=== PATIENT | female | born 1945 | race Asian ===

== ENCOUNTER 2025-04-09 14:04 | Inpatient (IN) | payer MEDICARE, OTHER ==
[~2025-04-09] VITALS: Ht 152.4 cm; Wt 46.7 kg
[2025-04-09] MEDS ORDERED: FERR325T24 PO (14:57)
[2025-04-09] MEDS ORDERED: DIVA-76 PO (14:57)
[2025-04-09] MEDS ORDERED: ASCO500T10 PO (14:57)
[2025-04-09] MEDS ORDERED: ANAS1TAB50 PO (14:57)
[2025-04-09] MEDS ORDERED: ATOR40TA PO (14:57)
[2025-04-09] MEDS ORDERED: MELA5TAB PO (14:57)
[2025-04-09] MEDS ORDERED: ACET-73 PO (14:57)
[2025-04-09] MEDS ORDERED: LEVO330T PO (14:57)
[2025-04-09] MEDS ORDERED: TRAZ-182 PO (14:57)
[2025-04-09] MEDS ORDERED: ACET325T53 PO (14:57)
[2025-04-09] MEDS ORDERED: EPIN0.3A4 IM (14:57)
[2025-04-09] MEDS ORDERED: TRAM50TA2 PO (14:57)
[2025-04-09] MEDS ORDERED: DONE10TA44 PO (14:57)
[2025-04-09 15:40] LABS: RED BLOOD CELL COUNT(AUTO) 2.97 MIL/uL (4.0-5.2); RED CELL DISTRIBUTION WIDTH 16.9 % (11.5-15.0); WHITE BLOOD COUNT (AUTO) 15.7 K/uL (4.3-11.0)
[2025-04-09 15:42] LABS: CALCIUM, SERUM 8.7 mg/dL (8.5-10.1); CREATININE 0.9 mg/dL (0.6-1.3); SODIUM SERUM 140 mmol/L (136-145); UREA NITROGEN, BLOOD 14 mg/dL (7-18)
[2025-04-09 15:46] LABS: PLATELET COUNT (AUTO) 1236 K/uL (150-450)
[2025-04-09 15:48] LABS: INR 1.05 (0.91-1.10)
[2025-04-09 15:51] LABS: LACTIC ACID 1.8 mmol/L (0.4-2.0)
[2025-04-09 15:56] LABS: ASPARTATE AMINOTRANSFERASE 92 U/L (15-37); TOTAL PROTEIN, SERUM 7.3 g/dL (6.4-8.2)
[2025-04-09 16:06] LABS: APPEARANCE,URINE CLEAR (CLEAR); BLOOD, URINE NEGATIVE Ery/uL (NEGATIVE); LEUKOCYTE ESTERASE ,URINE NEGATIVE (NEGATIVE); NITRITE, URINE NEGATIVE (NEGATIVE); UGLUCOSE NEGATIVE (NEGATIVE)
[2025-04-09 16:21] LABS: ADD URINE CULTURE NO; SQUAMOUS EPITHELIAL CELL,UR 0-2 /HPF (None Seen)
[2025-04-09 16:34] LABS: EOSINOPHILS % (MANUAL) 4 % (0-4); LYMPHOCYTES % (MANUAL) 7 % (16-48); MONOCYTES % (MANUAL) 5 % (0-11.0); NEUTROPHILS % (MANUAL) 84 (42-76); PLATELET ESTIMATE INCREASED
[2025-04-09] MEDS ORDERED: ASPIRIN 325 MG TABLET ONE (16:37)
[2025-04-09] MEDS: ASPIRIN 325 MG TABLET PO ONE (16:39)
[2025-04-09] MEDS ORDERED: ONDANSETRON HCL/PF 4 MG/2 ML VIAL IVP PRN (19:30)
[2025-04-09] MEDS ORDERED: MAG HYDROX/AL HYDROX/SIMETH 30 ML UDC PO PRN (19:30)
[2025-04-09] MEDS ORDERED: ACETAMINOPHEN 325 MG TABLET PO PRN ×2 (19:30)
[2025-04-09 20:00] VITALS: BP 122/82; TEMP 97.8; O2SAT 96
[2025-04-09] MEDS: ENOXAPARIN SODIUM 40 MG/0.4 ML DISP.SYRIN SQ SCH (20:33)
[2025-04-09] MEDS: IV NS 0.9% 1,000 ML IV PRN (20:44)
[2025-04-09] MEDS: TRAZODONE 50 MG TABLET PO SCH (21:09)
[2025-04-10 06:19] LABS: RED BLOOD CELL COUNT(AUTO) 2.92 MIL/uL (4.0-5.2); RED CELL DISTRIBUTION WIDTH 17.1 % (11.5-15.0); WHITE BLOOD COUNT (AUTO) 16.6 K/uL (4.3-11.0)
[2025-04-10 06:28] LABS: CALCIUM, SERUM 8.2 mg/dL (8.5-10.1); CREATININE 0.8 mg/dL (0.6-1.3); PHOSPHORUS 3.4 mg/dL (2.5-4.9); SODIUM SERUM 143.0 mmol/L (136-145); UREA NITROGEN, BLOOD 11.0 mg/dL (7-18)
[2025-04-10 07:28] LABS: PLATELET COUNT (AUTO) 1320 K/uL (150-450)
[2025-04-10 08:00] VITALS: BP 125/60; TEMP 98.6; O2SAT 94
[2025-04-10] MEDS: LEVOCARNITINE 330 MG TABLET PO SCH (08:44)
[2025-04-10] MEDS: DIVALPROEX SODIUM 250 MG TABLET.DR PO SCH (08:45)
[2025-04-10] MEDS: ANASTROZOLE 1 MG TABLET PO SCH (08:45)
[2025-04-10] MEDS: DONEPEZIL 5 MG TABLET PO SCH (08:45)
[2025-04-10] MEDS: TRAMADOL HCL 50 MG TABLET PO SCH (08:46)
[2025-04-10 08:55] LABS: BAND % (MANUAL) 2 % (0.0-5.0); NEUTROPHILS % (MANUAL) 86 (42-76)
[2025-04-10 08:56] LABS: EOSINOPHILS % (MANUAL) 1 % (0-4); LYMPHOCYTES % (MANUAL) 8 % (16-48); MONOCYTES % (MANUAL) 3 % (0-11.0); PLATELET ESTIMATE INCREASED
[2025-04-10] MEDS: HYDROXYUREA 500 MG CAPSULE PO SCH (17:13)
[2025-04-10 17:19] LABS: IRON, SERUM 56.0 ug/dl (50-175)
[2025-04-10 20:00] VITALS: BP 130/112; TEMP 97.9; O2SAT 97
[2025-04-10] MEDS: ALLOPURINOL 100 MG TABLET PO SCH (20:54)
[2025-04-11 07:17] LABS: CALCIUM, SERUM 8.7 mg/dL (8.5-10.1); CREATININE 0.8 mg/dL (0.6-1.3); PHOSPHORUS 3.4 mg/dL (2.5-4.9); SODIUM SERUM 139.0 mmol/L (136-145); UREA NITROGEN, BLOOD 9.0 mg/dL (7-18)
[2025-04-11 07:18] LABS: RED BLOOD CELL COUNT(AUTO) 2.90 MIL/uL (4.0-5.2); RED CELL DISTRIBUTION WIDTH 16.9 % (11.5-15.0); WHITE BLOOD COUNT (AUTO) 17.8 K/uL (4.3-11.0)
[2025-04-11 07:57] LABS: PLATELET COUNT (AUTO) 1334 K/uL (150-450)
[2025-04-11 08:00] VITALS: BP 103/62; TEMP 97.7; O2SAT 96
[2025-04-11] MEDS: ASPIRIN EC 81 MG TABLET.DR PO SCH (08:57)
[2025-04-11] MEDS ORDERED: IOHEXOL-350 100 ML VIAL IV ONE (09:10)
[2025-04-11 09:35] LABS: EOSINOPHILS % (MANUAL) 1 % (0-4); LYMPHOCYTES % (MANUAL) 4 % (16-48); MONOCYTES % (MANUAL) 3 % (0-11.0); NEUTROPHILS % (MANUAL) 92 (42-76)
[2025-04-11 09:36] LABS: PLATELET ESTIMATE INCREASED
[2025-04-11 16:00] VITALS: BP 99/65; TEMP 97.9; O2SAT 97
[2025-04-11] MEDS ORDERED: HYDROXYUREA 500 MG CAPSULE PO ONE (16:30)
[2025-04-11] MEDS: HYDROXYUREA 500 MG CAPSULE PO SCH (16:50)
[2025-04-11 20:00] VITALS: BP 113/58; TEMP 97.9; O2SAT 95
[2025-04-12] MEDS: MAGNESIUM HYDROXIDE 30 ML UDC PO PRN (05:37)
[2025-04-12 07:08] LABS: CALCIUM, SERUM 8.4 mg/dL (8.5-10.1); CREATININE 0.8 mg/dL (0.6-1.3); PHOSPHORUS 4.0 mg/dL (2.5-4.9); SODIUM SERUM 139.0 mmol/L (136-145); UREA NITROGEN, BLOOD 9.0 mg/dL (7-18)
[2025-04-12 07:34] LABS: RED BLOOD CELL COUNT(AUTO) 2.93 MIL/uL (4.0-5.2); RED CELL DISTRIBUTION WIDTH 16.7 % (11.5-15.0); WHITE BLOOD COUNT (AUTO) 17.2 K/uL (4.3-11.0)
[2025-04-12 07:43] LABS: PLATELET COUNT (AUTO) 1362 K/uL (150-450)
[2025-04-12 08:00] VITALS: BP 112/68; TEMP 97.7; O2SAT 98
[2025-04-12 09:45] LABS: LYMPHOCYTES % (MANUAL) 9 % (16-48); MONOCYTES % (MANUAL) 6 % (0-11.0); NEUTROPHILS % (MANUAL) 85 (42-76); PLATELET ESTIMATE INCREASED
[2025-04-12] MEDS: HYDROXYUREA 500 MG CAPSULE PO SCH (10:34)
[2025-04-12 11:09] LABS: IMMUNOGLOBULIN A, SERUM 369 mg/dL (64-422); IMMUNOGLOBULIN M, SERUM 160 mg/dL (26-217)
[2025-04-13 07:07] LABS: FOLIC ACID 15.5 ng/mL (>3.0)
[2025-04-13 07:13] LABS: RED BLOOD CELL COUNT(AUTO) 3.16 MIL/uL (4.0-5.2); RED CELL DISTRIBUTION WIDTH 16.7 % (11.5-15.0); WHITE BLOOD COUNT (AUTO) 16.2 K/uL (4.3-11.0)
[2025-04-13 07:26] LABS: PLATELET COUNT (AUTO) 1301 K/uL (150-450)
[2025-04-13 07:30] VITALS: BP 140/84; TEMP 98.1; O2SAT 98
[2025-04-13 07:54] LABS: BASOPHILS % (MANUAL) 0 % (0.0-2.0); EOSINOPHILS % (MANUAL) 3 % (0-4); LYMPHOCYTES % (MANUAL) 9 % (16-48); MONOCYTES % (MANUAL) 7 % (0-11.0); NEUTROPHILS % (MANUAL) 81 (42-76); PLATELET ESTIMATE INCREASED
[2025-04-13 08:07] LABS: FREE KAPPA LT CHAINS SERUM 36.2 mg/L (3.3-19.4); FREE LAMBDA LT CHAIN SERUM 26.6 mg/L (5.7-26.3); KAPPA/LAMBDA RATIO SERUM 1.36 (0.26-1.65)
[2025-04-13 16:00] VITALS: BP 133/104; TEMP 98.2; O2SAT 96
[2025-04-14 06:42] LABS: RED BLOOD CELL COUNT(AUTO) 2.90 MIL/uL (4.0-5.2); RED CELL DISTRIBUTION WIDTH 17.1 % (11.5-15.0); WHITE BLOOD COUNT (AUTO) 13.1 K/uL (4.3-11.0)
[2025-04-14 07:03] LABS: PLATELET COUNT (AUTO) 1273 K/uL (150-450)
[2025-04-14 07:16] LABS: ASPARTATE AMINOTRANSFERASE 122.0 U/L (15-37); CALCIUM, SERUM 8.5 mg/dL (8.5-10.1); CREATININE 0.9 mg/dL (0.6-1.3); SODIUM SERUM 142.0 mmol/L (136-145); TOTAL PROTEIN, SERUM 7.0 g/dL (6.4-8.2); UREA NITROGEN, BLOOD 14.0 mg/dL (7-18)
[2025-04-14 07:25] LABS: BASOPHILS % (MANUAL) 0 % (0.0-2.0); EOSINOPHILS % (MANUAL) 2 % (0-4); LYMPHOCYTES % (MANUAL) 8 % (16-48); MONOCYTES % (MANUAL) 3 % (0-11.0); NEUTROPHILS % (MANUAL) 87 (42-76); PLATELET ESTIMATE INCREASED
[2025-04-14 08:46] VITALS: BP 120/42; TEMP 98.6; O2SAT 96
[2025-04-14 12:56] LABS: INR 1.04 (0.91-1.10)
[2025-04-14] MEDS: HYDROXYUREA 500 MG CAPSULE PO SCH (13:25)
[2025-04-14] MEDS: LIDOCAINE 1% INJ 50 ML MDV IJ ONE (14:30)
[2025-04-14 16:23] VITALS: BP 118/64; TEMP 97.9; O2SAT 96
[2025-04-14] MEDS: LORAZEPAM 1 MG TABLET PO ONE (18:03)
[2025-04-14] MEDS: MORPHINE SULFATE INJ 2 MG/ML DISP.SYRIN IV ONE (18:04)
[2025-04-14 19:25] LABS: RED BLOOD CELL COUNT(AUTO) 2.95 MIL/uL (4.0-5.2); RED CELL DISTRIBUTION WIDTH 16.6 % (11.5-15.0); WHITE BLOOD COUNT (AUTO) 13.9 K/uL (4.3-11.0)
[2025-04-14 19:33] LABS: PLATELET COUNT (AUTO) 1227 K/uL (150-450)
[2025-04-14 20:31] LABS: BASOPHILS % (MANUAL) 0 % (0.0-2.0); EOSINOPHILS % (MANUAL) 2 % (0-4); LYMPHOCYTES % (MANUAL) 7 % (16-48); MONOCYTES % (MANUAL) 4 % (0-11.0); NEUTROPHILS % (MANUAL) 87 (42-76); PLATELET ESTIMATE INCREASED
[2025-04-14 21:04] VITALS: BP 106/82; TEMP 97.5; O2SAT 94
[2025-04-15 06:55] LABS: RED BLOOD CELL COUNT(AUTO) 2.88 MIL/uL (4.0-5.2); RED CELL DISTRIBUTION WIDTH 16.5 % (11.5-15.0); WHITE BLOOD COUNT (AUTO) 12.9 K/uL (4.3-11.0)
[2025-04-15 07:12] LABS: PLATELET COUNT (AUTO) 1262 K/uL (150-450)
[2025-04-15 07:30] VITALS: BP 114/97; TEMP 97.7; O2SAT 94
[2025-04-15 07:37] LABS: EOSINOPHILS % (MANUAL) 3 % (0-4); LYMPHOCYTES % (MANUAL) 9 % (16-48); MONOCYTES % (MANUAL) 5 % (0-11.0); NEUTROPHILS % (MANUAL) 83 (42-76); PLATELET ESTIMATE INCREASED
[2025-04-15 08:27] LABS: ASPARTATE AMINOTRANSFERASE 96.0 U/L (15-37); CALCIUM, SERUM 8.3 mg/dL (8.5-10.1); CREATININE 0.8 mg/dL (0.6-1.3); PHOSPHORUS 3.9 mg/dL (2.5-4.9); SODIUM SERUM 140.0 mmol/L (136-145); TOTAL PROTEIN, SERUM 7.0 g/dL (6.4-8.2); UREA NITROGEN, BLOOD 18.0 mg/dL (7-18)
[2025-04-15 16:00] VITALS: BP 101/49; TEMP 97.2; O2SAT 97
[2025-04-15 20:00] VITALS: BP 111/71; TEMP 97.7; O2SAT 95
[2025-04-16 07:10] LABS: RED BLOOD CELL COUNT(AUTO) 2.79 MIL/uL (4.0-5.2); RED CELL DISTRIBUTION WIDTH 17.1 % (11.5-15.0); WHITE BLOOD COUNT (AUTO) 11.4 K/uL (4.3-11.0)
[2025-04-16 07:11] LABS: *VON WILLEBRAND FACTOR (vWF)AG >597 % (50-200); FACTOR VIII ACTIVITY 114 % (56-140)
[2025-04-16 07:30] VITALS: BP 122/74; TEMP 98.2; O2SAT 99
[2025-04-16 07:48] LABS: PLATELET COUNT (AUTO) 1259 K/uL (150-450)
[2025-04-16 12:33] LABS: EOSINOPHILS % (MANUAL) 4 % (0-4); LYMPHOCYTES % (MANUAL) 7 % (16-48); MONOCYTES % (MANUAL) 8 % (0-11.0); NEUTROPHILS % (MANUAL) 81 (42-76); PLATELET ESTIMATE INCREASED
[2025-04-16] MEDS: HYDROXYUREA 500 MG CAPSULE PO ONE ×2 (14:30→23:04)
[2025-04-16 16:00] VITALS: BP 106/43; TEMP 98.1; O2SAT 99
[2025-04-16] MEDS: HYDROXYUREA 500 MG CAPSULE PO SCH (21:00)
[2025-04-17 07:47] LABS: CALCIUM, SERUM 8.0 mg/dL (8.5-10.1); CREATININE 0.9 mg/dL (0.6-1.3); PHOSPHORUS 3.7 mg/dL (2.5-4.9); SODIUM SERUM 143.0 mmol/L (136-145); UREA NITROGEN, BLOOD 20.0 mg/dL (7-18)
[2025-04-17 07:59] LABS: RED BLOOD CELL COUNT(AUTO) 2.83 MIL/uL (4.0-5.2); RED CELL DISTRIBUTION WIDTH 16.6 % (11.5-15.0); WHITE BLOOD COUNT (AUTO) 10.8 K/uL (4.3-11.0)
[2025-04-17 08:00] VITALS: BP 103/50; TEMP 97.7; O2SAT 98
[2025-04-17 08:10] LABS: PLATELET COUNT (AUTO) 1266 K/uL (150-450)
[2025-04-17 10:51] LABS: EOSINOPHILS % (MANUAL) 1 % (0-4); LYMPHOCYTES % (MANUAL) 4 % (16-48); MONOCYTES % (MANUAL) 3 % (0-11.0); NEUTROPHILS % (MANUAL) 92 (42-76); PLATELET ESTIMATE INCREASED
[2025-04-17 16:00] VITALS: BP 114/53; TEMP 97.7; O2SAT 97
[2025-04-17 20:00] VITALS: BP 106/51; TEMP 98.1; O2SAT 95
[2025-04-18 07:00] VITALS: BP 105/43; TEMP 98.4; O2SAT 96
[2025-04-18 07:08] LABS: RED BLOOD CELL COUNT(AUTO) 3.10 MIL/uL (4.0-5.2); RED CELL DISTRIBUTION WIDTH 17.3 % (11.5-15.0); WHITE BLOOD COUNT (AUTO) 8.2 K/uL (4.3-11.0)
[2025-04-18 08:00] VITALS: BP 95/68; TEMP 97.5; O2SAT 94
[2025-04-18 08:27] LABS: ASPARTATE AMINOTRANSFERASE 61.0 U/L (15-37); CALCIUM, SERUM 8.7 mg/dL (8.5-10.1); CREATININE 0.9 mg/dL (0.6-1.3); PHOSPHORUS 4.2 mg/dL (2.5-4.9); SODIUM SERUM 141.0 mmol/L (136-145); TOTAL PROTEIN, SERUM 7.7 g/dL (6.4-8.2); UREA NITROGEN, BLOOD 23.0 mg/dL (7-18)
[2025-04-18 08:44] LABS: PLATELET COUNT (AUTO) 1230 K/uL (150-450)
[2025-04-18 10:08] LABS: EOSINOPHILS % (MANUAL) 2 % (0-4); LYMPHOCYTES % (MANUAL) 12 % (16-48); MONOCYTES % (MANUAL) 5 % (0-11.0); NEUTROPHILS % (MANUAL) 81 (42-76)
[2025-04-18 10:09] LABS: PLATELET ESTIMATE INCREASED
[2025-04-18 16:00] VITALS: BP 109/59; TEMP 97.9; O2SAT 94
[2025-04-18 20:00] VITALS: BP 95/68; TEMP 97.5; O2SAT 94
[2025-04-18 22:56] VITALS: BP 103/66; TEMP 97.5; O2SAT 94
[2025-04-19 08:00] VITALS: BP 98/64; TEMP 98.2; O2SAT 96
[2025-04-19] MEDS: Z GUARD REMEDY 4 OZ OINT TP PRN (08:13)
[2025-04-19 15:25] LABS: RED BLOOD CELL COUNT(AUTO) 2.80 MIL/uL (4.0-5.2); RED CELL DISTRIBUTION WIDTH 17.2 % (11.5-15.0); WHITE BLOOD COUNT (AUTO) 5.7 K/uL (4.3-11.0)
[2025-04-19 15:28] LABS: PLATELET COUNT (AUTO) 1154 K/uL (150-450)
[2025-04-19 15:32] LABS: CALCIUM, SERUM 8.6 mg/dL (8.5-10.1); CREATININE 0.9 mg/dL (0.6-1.3); PHOSPHORUS 4.3 mg/dL (2.5-4.9); SODIUM SERUM 140.0 mmol/L (136-145); UREA NITROGEN, BLOOD 27.0 mg/dL (7-18)
[2025-04-19 16:00] VITALS: BP 95/69; TEMP 98.8; O2SAT 98
[2025-04-19 16:19] LABS: EOSINOPHILS % (MANUAL) 5 % (0-4); LYMPHOCYTES % (MANUAL) 10 % (16-48); MONOCYTES % (MANUAL) 5 % (0-11.0); NEUTROPHILS % (MANUAL) 80 (42-76)
[2025-04-19 16:20] LABS: PLATELET ESTIMATE INCREASED
[2025-04-19] MEDS: ENSURE ENLIVE 237 ML LIQUID (VANILLA) PO SCH (17:17)
[2025-04-19 20:00] VITALS: BP 93/57; TEMP 97.9; O2SAT 94
[2025-04-20 08:00] VITALS: BP_SYST 103; BP_SYST 110; BP_DIAS 60; BP_DIAS 75; TEMP 97.5; TEMP 98.8; O2SAT 98; O2SAT 99
[2025-04-20] MEDS: MEGESTROL ACETATE 40 MG TABLET PO SCH (08:39)
[2025-04-20 16:00] VITALS: BP 105/58; TEMP 98; O2SAT 97
[2025-04-20 20:00] VITALS: BP 107/41; TEMP 97.9; O2SAT 96
[2025-04-21 07:31] LABS: RED BLOOD CELL COUNT(AUTO) 3.10 MIL/uL (4.0-5.2); RED CELL DISTRIBUTION WIDTH 16.7 % (11.5-15.0); WHITE BLOOD COUNT (AUTO) 6.4 K/uL (4.3-11.0)
[2025-04-21 07:51] LABS: PLATELET COUNT (AUTO) 944 K/uL (150-450)
[2025-04-21 08:00] VITALS: BP 158/62; TEMP 97.9; O2SAT 98
[2025-04-21] MEDS ORDERED: ASPI-1169 PO (11:32)
[2025-04-21] MEDS ORDERED: ALLO100T25 PO (11:32)
[2025-04-21] MEDS ORDERED: HYDR500C PO (11:32)
[2025-04-21] MEDS ORDERED: MEGE40TA7 PO (11:32)
[2025-04-21 18:18] LABS: EOSINOPHILS % (MANUAL) 1 % (0-4); LYMPHOCYTES % (MANUAL) 12 % (16-48); MONOCYTES % (MANUAL) 5 % (0-11.0); NEUTROPHILS % (MANUAL) 82 (42-76); PLATELET ESTIMATE INCREASED
[2025-04-22] MEDS ORDERED: HYDROXYUREA 500 MG CAPSULE PO SCH (09:00)
[2025-04-22 15:07] LABS: *SPE A/G RATIO 0.7 (0.7-1.7); *SPE ALBUMIN 3.0 g/dL (2.9-4.4); *SPE ALPHA-1-GLOBULIN 0.4 g/dL (0.0-0.4); *SPE ALPHA-2-GLOBULIN 0.8 g/dL (0.4-1.0); *SPE BETA GLOBULIN 1.0 g/dL (0.7-1.3); *SPE GLOBULIN, TOTAL 4.1 g/dL (2.2-3.9); *SPE M-SPIKE 0.3 g/dL (Not Observed); *SPE PROTEIN TOTAL 7.1 g/dL (6.0-8.5); *SPEGAMMA GLOBULIN 1.9 g/dL (0.4-1.8)
== END 2025-04-21 17:20 | DRG 840 ==
LOC: ER 14:06 → MED 18:38
PROVIDERS: ADMIT Internal Medicine; ATTEND Nurse Practitioner Acute Care
PROC: 07DR3ZX Extraction of Iliac Bone Marrow, Percutaneous Approach, Diagnostic (ICD-10-PCS; principal; 2025-04-14)
DX: D47.1 Chronic myeloproliferative disease (principal); G93.41 Metabolic encephalopathy; S32.039A Unspecified fracture of third lumbar vertebra, initial encounter for closed fracture; E44.0 Moderate protein-calorie malnutrition; D75.839 Thrombocytosis, unspecified; E86.0 Dehydration; D72.829 Elevated white blood cell count, unspecified; E88.09 Other disorders of plasma-protein metabolism, not elsewhere classified; F03.90 Unspecified dementia, unspecified severity, without behavioral disturbance, psychotic disturbance, mood disturbance, and anxiety; E78.5 Hyperlipidemia, unspecified; Z85.3 Personal history of malignant neoplasm of breast; Z79.899 Other long term (current) drug therapy; K82.8 Other specified diseases of gallbladder; F29 Unspecified psychosis not due to a substance or known physiological condition; D64.9 Anemia, unspecified; R74.01 Elevation of levels of liver transaminase levels; X58.XXXA Exposure to other specified factors, initial encounter; Y92.009 Unspecified place in unspecified non-institutional (private) residence as the place of occurrence of the external cause
CPT/HCPCS: 36415; 70450-TC; 71045-TC; 71260-TC; 76705-TC; 80048-TC; 80053-TC; 80076-TC; 81001; 82607-TC; 82728-TC; 82784; 83540-TC; 83605-TC; 83735-TC; 84100-TC; 84155; 84165; 84443-TC; 84484-TC; 84550-TC; 85025-TC; 85027-TC; 85240; 85245; 85246; 85610-TC; 85730-TC; 86334; 87040-TC; 87081-TC; 87086-TC; A4223; G0378; J1650; J2270; J3490; J7030; Q9967

== ENCOUNTER 2025-05-27 13:49 | Emergency (ER) | payer MEDICARE, OTHER ==
[~2025-05-27] VITALS: Ht 165.1 cm; Wt 55.8 kg
[~2025-05-27 13:49] MED LIST: ACET-73 PO; ACET325T53 PO; ALLO100T25 PO; ANAS1TAB50 PO; ASCO500T10 PO; ASPI-1169 PO; ATOR40TA PO; DIVA-76 PO; DONE10TA44 PO; EPIN0.3A4 IM; FERR325T24 PO; HYDR500C PO; LEVO330T PO; MEGE40TA7 PO; MELA5TAB PO; TRAM50TA2 PO; TRAZ-182 PO
[2025-05-27 13:58] VITALS: TEMP 97.8
[2025-05-27 14:48] LABS: RED BLOOD CELL COUNT(AUTO) 2.37 MIL/uL (4.0-5.2); RED CELL DISTRIBUTION WIDTH 24.0 % (11.5-15.0); WHITE BLOOD COUNT (AUTO) 10.2 K/uL (4.3-11.0)
[2025-05-27 14:50] LABS: PLATELET COUNT (AUTO) 961 K/uL (150-450)
[2025-05-27 14:57] LABS: CALCIUM, SERUM 8.1 mg/dL (8.5-10.1); CREATININE 0.9 mg/dL (0.6-1.3); SODIUM SERUM 132.0 mmol/L (136-145); UREA NITROGEN, BLOOD 13.0 mg/dL (7-18)
[2025-05-27 15:03] LABS: ASPARTATE AMINOTRANSFERASE 26.0 U/L (15-37); TOTAL PROTEIN, SERUM 7.7 g/dL (6.4-8.2)
[2025-05-27 15:04] LABS: INR 1.08 (0.91-1.10)
[2025-05-27 15:58] LABS: EOSINOPHILS % (MANUAL) 1 % (0-4); LYMPHOCYTES % (MANUAL) 10 % (16-48); MONOCYTES % (MANUAL) 6 % (0-11.0); NEUTROPHILS % (MANUAL) 83 (42-76); PLATELET ESTIMATE INCREASED
[2025-05-27 16:58] VITALS: BP 116/70; O2SAT 98
== END 2025-05-27 16:45 ==
LOC: ER 14:01
DX: D75.839 Thrombocytosis, unspecified (principal); D64.9 Anemia, unspecified; Z02.2 Encounter for examination for admission to residential institution; Z79.64 Long term (current) use of myelosuppressive agent; Z79.82 Long term (current) use of aspirin; Z79.899 Other long term (current) drug therapy; Z85.3 Personal history of malignant neoplasm of breast
CPT/HCPCS: 36415; 80048-TC; 80076-TC; 85025-TC; 85027-TC; 85730-TC; 86850-TC

== ENCOUNTER 2025-06-21 20:47 | Emergency (ER) | payer MEDICARE, OTHER ==
[~2025-06-21] VITALS: Ht 154.9 cm; Wt 47.2 kg
[2025-06-21 20:55] VITALS: TEMP 98.4
[2025-06-21 23:23] VITALS: BP 116/55; O2SAT 97
== END 2025-06-21 23:33 ==
LOC: ER 20:48
DX: S09.90XA Unspecified injury of head, initial encounter (principal); F03.90 Unspecified dementia, unspecified severity, without behavioral disturbance, psychotic disturbance, mood disturbance, and anxiety; I11.9 Hypertensive heart disease without heart failure; Z85.3 Personal history of malignant neoplasm of breast; Z79.899 Other long term (current) drug therapy; Z79.82 Long term (current) use of aspirin; Z79.64 Long term (current) use of myelosuppressive agent; W19.XXXA Unspecified fall, initial encounter; Y93.01 Activity, walking, marching and hiking; Y92.89 Other specified places as the place of occurrence of the external cause; Y99.8 Other external cause status
CPT/HCPCS: 70450-TC; 71045-TC; 72125-TC; 72170-TC